=== PATIENT | female | born 1995 | race African-American/Black ===

== ENCOUNTER 2017-01-31 14:50 | Emergency (ER) | payer MEDICAID ==
[~2017-01-31] VITALS: Ht 172.7 cm; Wt 76.0 kg
[2017-01-31 14:54] VITALS: BP 118/60; PULSE 73; RESP 20; TEMP 97.8; O2SAT 98
[2017-01-31] MEDS ORDERED: methylPREDNISolone SOD SUCC 125 MG/2 ML VIAL IVP ONE (15:00)
[2017-01-31] MEDS ORDERED: SODIUM CHLORIDE 0.9% FLUSH 10 ML FLUSH IV FLUSH PRN (15:00)
[2017-01-31] MEDS ORDERED: diphenhydrAMINE HCL 50 MG/ML VIAL IVP ONE (15:00)
[2017-01-31] MEDS ORDERED: SODIUM CHLOR 0.9% 1000 ML INJ 1,000 ML IV SCH (15:00)
[2017-01-31 15:04] VITALS: RESP 20; O2SAT 98
[2017-01-31] MEDS ORDERED: VENTAER INH (15:04)
--- NOTE | 2017-01-31 15:05 | PD ---
HPI Chief Complaint: Allergic/Adverse Reaction Time Seen by Provider: 15:01 Travel History International Travel<30 days: No Contact w/Intl Traveler<30days: No History of Present Illness HPI Patient is a 21-year-old female presenting to the emergency evaluation of a possible allergic reaction. Patient was initially refusing treatment stating that she wanted to go home. 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 Patient had hives on her arms and her stomach. She administered one EpiPen to herself, continued to be symptomatic and 30 minutes later administered second. She was on a [employer] bus attempting to travel to [place] when the business services associate called 911. Patient was given 2 albuterol treatments en route. She reports a history of asthma as well as a history of anaphylaxis. [facility] Past Medical History Asthma: Yes Past Surgical History Appendectomy: Yes Tonsillectomy: Yes Social History Alcohol Use: No Tobacco Use: No Substance Use: No Allergies-Medications (Allergen,Severity, Reaction): Coded Allergies: Mosquito (Verified Adverse Reaction, Severe, Anaphylaxis, 01/31/17) Reported Meds & Prescriptions Reported Meds & Active Scripts Active Reported Ventolin Hfa 18 GM Inh (Albuterol Sulfate) 90 Mcg/Act Aer 2 Puff INH Q4-6H PRN Review of Systems Except as stated in HPI: all other systems reviewed are Neg Respiratory: Positive: Wheezing Skin: Positive Itching, Positive Hives Physical Exam Narrative GENERAL: Well-developed, well-nourished, alert female. Resting comfortably in no acute distress. SKIN: Focused skin assessment warm/dry. Hives noted on arms and back. HEAD: Atraumatic. Normocephalic. EYES: Pupils equal and round. No scleral icterus. No injection or drainage. ENT: No nasal bleeding or discharge. Mucous membranes pink and moist. NECK: Trachea midline. No JVD. CARDIOVASCULAR: Regular rate and rhythm. No murmur appreciated. RESPIRATORY: No accessory muscle use. Diminished throughout. GASTROINTESTINAL: Abdomen soft, non-tender, nondistended. Hepatic and splenic margins not palpable. MUSCULOSKELETAL: No obvious deformities. No clubbing. No cyanosis. No edema. NEUROLOGICAL: Awake and alert. No obvious cranial nerve deficits. Motor grossly within normal limits. Normal speech. PSYCHIATRIC: Appropriate mood and affect; insight and judgment normal. Data Data Last Documented VS Vital Signs Date Time Temp Pulse Resp B/P Pulse Ox O2 Delivery O2 Flow Rate FiO2 01/31/17 15:04 20 98 Room Air 01/31/17 14:54 97.8 73 118/60 Orders Ecg Monitoring (01/31/17 15:00) Iv Access Insert/Monitor (01/31/17 15:00) Oximetry (01/31/17 15:00) Diphenhydramine Inj (Benadryl Inj) (01/31/17 15:00) Methylprednisolone So Succ Inj (Solumedr (01/31/17 15:00) Sodium Chlor 0.9% 1000 Ml Inj (Ns 1000 M (01/31/17 15:00) Sodium Chloride 0.9% Flush (Ns Flush) (01/31/17 15:00) Chest, Single Ap (01/31/17 ) MDM Medical Decision Making Medical Screen Exam Complete: Yes Emergency Medical Condition: Yes Interpretation(s) Vital Signs Date Time Temp Pulse Resp B/P Pulse Ox O2 Delivery O2 Flow Rate FiO2 01/31/17 15:04 20 98 Room Air 01/31/17 14:54 97.8 73 20 118/60 98 Differential Diagnosis Contact dermatitis versus allergic reaction versus anaphylaxis versus respiratory distress versus other Narrative Course Patient is a 21-year-old female presenting to emergency Department for evaluation of a possible allergic reaction. She initially did not want to stay in the emergency department refusing all treatment. Discussed treatment plan with patient, she is agreeable to IV access, Solu-Medrol, Benadryl and IV fluids. Patient is refusing chest x-ray. 1640- patient reassessed, lung sounds improved. Patient wants to go home, she is refusing any further treatment. Discussed with my attending physician. Patient will be given a prescription for prednisone. She is encouraged to keep an EpiPen on her all times. She is encouraged to return to the nearest emergency department if symptoms return. Patient verbalized understanding of these instructions. Patient is stable for discharge. Diagnosis Primary Impression: Allergic reaction Qualified Code: T78.40XA - Allergic reaction, initial encounter Referrals: Primary Care Physician Patient Instructions: General Allergic Reaction (ED), General Instructions Additional Instructions: Follow-up with her primary doctor Take medications as directed Take [id number] Benadryl as needed and as directed for itching Keep an EpiPen on you at all times Return to the nearest emergency department for any new or worsening symptoms Med/Other Pt SpecificInfo: Prescription(s) given Scripts Prednisone 50 Mg Tab50 Mg PO DAILY #7 TAB Ref 0 Prov:Joya Mcfarlane 01/31/17 Epinephrine Inj (Epipen 2-King Inj)0.3 Mg/0.3 Ml Pfpen0.3 Mg IM ONCE PRN ( ALLERGIC REACTION) #1 PACK Ref 0 Prov:Joya Mcfarlane 01/31/17 Disposition: 01 DISCHARGE HOME Condition: Stable Joya Mcfarlane Jan 31, 2017 15:05
[2017-01-31] MEDS ORDERED: EPIP0.3I IM (16:53)
[2017-01-31] MEDS ORDERED: PRED50 PO (16:53)
[2017-01-31 17:13] VITALS: BP 120/77; TEMP 97.8
== END 2017-01-31 17:13 | disposition home or self-care (01) ==
LOC: NEPE 14:50
DX: T78.40XA Allergy, unspecified, initial encounter (principal); L50.9 Urticaria, unspecified; L29.9 Pruritus, unspecified; R06.2 Wheezing; J45.909 Unspecified asthma, uncomplicated
CPT/HCPCS: 96361; 96374; 96375; 99284; J1200; J2930; J7030